=== PATIENT | female | born 1980 | race Caucasian/White ===

== ENCOUNTER 2020-05-22 12:12 | Emergency (ER) | payer BC ==
[~2020-05-22 12:12] MED LIST: AMLODIPINE BESYL5 MG PO; CRESTOR20 MG PO; HYDROCHLOROTH12.5 MG PO; LISINOPRIL40 MG PO; METFORMIN HCL1000 MG PO; ONDANSETRON HCL4 MG PO; PHENERGAN 25 MG25 M1 PO; PROTONIX 40 MG40 M1 PO; SERTRALINE HCL100 MG PO; VIT D3 PO; XARELTO20 MG PO
== END 2020-05-22 17:03 | disposition home or self-care (01) ==
LOC: ER1 12:12
DX: I73.9 Peripheral vascular disease, unspecified (principal); M25.552 Pain in left hip; I10 Essential (primary) hypertension; E11.9 Type 2 diabetes mellitus without complications; F17.200 Nicotine dependence, unspecified, uncomplicated; Z87.39 Personal history of other diseases of the musculoskeletal system and connective tissue; Z88.5 Allergy status to narcotic agent; Z91.013 Allergy to seafood; Z98.890 Other specified postprocedural states; Z79.01 Long term (current) use of anticoagulants
CPT/HCPCS: 73502; 93005; 93926; 93971; 99284

== ENCOUNTER 2020-12-25 17:58 | Emergency (ER) | payer BC ==
[2020-12-25 20:34] LABS: HEMOGLOBIN 14.2 gm/dl (12.3-15.3); RED BLOOD COUNT 4.98 M/UL (4.00-5.10)
[2020-12-26 01:50] LABS: HEMOGLOBIN 13.9 gm/dl (12.3-15.3); RED BLOOD COUNT 4.86 M/UL (4.00-5.10)
[2020-12-26 01:51] LABS: WHITE BLOOD COUNT 15.1 K/UL (4.5-11.0)
[2020-12-26 02:12] LABS: BUN/CREATININE RATIO 6 (0-10)
== END 2020-12-26 10:43 | disposition home or self-care (01) ==
LOC: ER1 17:58
PROVIDERS: Family Medicine; Physician Assistant
DX: M79.662 Pain in left lower leg (principal); E11.9 Type 2 diabetes mellitus without complications; I10 Essential (primary) hypertension; Z86.718 Personal history of other venous thrombosis and embolism; E11.51 Type 2 diabetes mellitus with diabetic peripheral angiopathy without gangrene; Z91.013 Allergy to seafood; Z79.01 Long term (current) use of anticoagulants
CPT/HCPCS: 71045; 80053; 82550; 82553; 82962; 83605; 84484; 85025; 85379; 85610; 85730; 87040; 93926; 99284